=== PATIENT | male | born 1970 | race Caucasian/White ===

== ENCOUNTER 2021-03-05 09:51 | Emergency (ER) | payer OTHER, BC ==
--- NOTE | 2021-03-05 10:24 | EDM.PDOC ---
ED HPI GENERAL MEDICAL PROBLEM - General Chief Complaint: Upper Extremity Injury/Pain Stated Complaint: LEFT ELBOW PAIN Time Seen by Provider: 03/05/21 10:11 Source of Information: Reports: Patient History Limitations: Reports: No Limitations - History of Present Illness INITIAL COMMENTS - FREE TEXT/NARRATIVE: HISTORY AND PHYSICAL: History of present illness: Patient is a 50-year-old male who presents to the emergency room with complaints of left elbow pain post fall. Patient states he tripped and fell landing on his left elbow. Denies hitting his head or having any loss of consciousness. He does have significant bruising noted at the elbow region. Denies any numbness, tingling, saddle paresthesia. Denies any other bodily injury. Offers no systemic complaints. Review of systems: As per history of present illness and below otherwise all systems reviewed and negative. Past medical history: As per history of present illness and as reviewed below otherwise non contributory. Surgical history: As per history of present illness and as reviewed below otherwise noncontributory. Social history: See social history for further information Family history: As per history of present illness and as reviewed below otherwise noncontributory. Physical exam: General: Well developed and well nourished 50 year old female. Alert and orientated x 3. Nontoxic in appearance and in no acute distress. Vital signs are stable and have been reviewed by me. Nursing notes were reviewed. HEENT: Atraumatic, normocephalic, pupils equal and reactive bilaterally, negative for conjunctival pallor or scleral icterus, mucous membranes moist, trachea midline. No drooling or trismus noted. No meningeal signs. No hot potato voice noted. Lungs: Clear to auscultation bilaterally. No wheezes, rales, or rhonchi. Chest nontender. Normal work of breathing, no accessory muscles used. Heart: S1S2, regular rate and rhythm without overt murmur, gallops, or rubs. No JVD. No peripheral edema Abdomen: Soft, nondistended, nontender. Skin: Bruising to the left elbow with soft tissue swelling. Remaining skin is intact, warm, dry. No lesions or rashes noted. Hematologic: No petechiae or purpra. Mucosa appropriate color and normal nail bed color and refill. Extremities: Pain with palpation of the left olecranon and soft tissue surrounding the elbow. He does have good range of motion although it does cause increased pain. Otherwise he moves all other extremities per self without difficulty or deficits, negative for cords or calf pain. Neurovascular unremarkable. Neuro: Awake, alert, oriented. Cranial nerves II through XII unremarkable. Cerebellum unremarkable. Motor and sensory unremarkable throughout. Exam nonfocal. Psychiatric: Mood and affect are appropriate. Normal thought process. Answering questions appropriately. Please note that the patient was seen and evaluated during the 2019 SARS-CoV-2 novel coronavirus pandemic period. Community viral transmission is ongoing at time of this encounter and the emergency department is operating under pandemic response procedures. Medical Decision Making: Patient is a 50-year-old male who presents to the emergency room with complaints of left elbow pain post fall. Will obtain an x-ray. X-ray shows mild soft tissue swelling overlying the olecranon. No other acute findings. No fracture or dislocation. Sling for left elbow contusion. Patient to wear for comfort over the next 1 to 3 days or until he follows up with orthopedics. I have talked with the patient about today's findings, in addition to providing specific details for plan of care. Reassessment at the time of disposition demonstrates that the patient is in no acute distress. The patient is stable for discharge, counseling was provided and we discussed in great detail signs and symptoms that would prompt them to return to the Emergency Department. Medication, follow up and supportive care measures were reviewed and discussed. Voices understanding and is agreeable to plan of care. Denies any further questions or concerns at this time. Diagnostics: Elbow x-ray Therapeutics: Sling Prescription: Bill Impression: Elbow contusion Plan: 1. You were evaluated today on an emergent basis. X-ray shows mild soft tissue swelling overlying the olecranon. No other acute findings. No fracture or dislocation. Rest, ice, elevate the extremity as able. Sling for comfort purposes. 2. You can alternate Tylenol and ibuprofen as needed for pain and fever management. 3. We encourage you to follow up with your primary care provider and/or recommended specialist in the next few days for re-evaluation and further care/management. 4. If your symptoms should worsen, new symptoms develop or any of the signs and symptoms we discussed should arise please return to the emergency room or call 911 (if needed). Definitive disposition and diagnosis as appropriate pending reevaluation and review of above. left elbow Pain Score (Numeric/FACES): 5 - Related Data Allergies Allergy/AdvReac Type Severity Reaction Status Date / Time No Known Allergies Allergy Verified 03/05/21 12:04 Home Meds: Home Meds traMADol [Ultram] 50 mg PO Q4H PRN #15 tab 03/05/21 [Rx] Past Medical History - Past Health History Medical/Surgical History: Denies Medical/Surgical History Review of Systems - Review of Systems Review Of Systems: Comprehensive ROS is negative, except as noted in HPI. ED EXAM, GENERAL - Physical Exam Exam: See Below (See dictation) Course - Vital Signs Last Recorded V/S: Last Vital Signs Temp 96.7 F L 03/05/21 12:05 Pulse 57 L 03/05/21 12:05 Resp 18 03/05/21 12:05 BP 136/79 03/05/21 12:05 Pulse Ox 98 03/05/21 12:05 - Orders/Labs/Meds Orders: Active Orders 24 hr Category Date Time Status DME for Discharge [COMM] Stat Oth 03/05/21 12:28 Ordered Departure - Departure Time of Disposition: 12:32 Disposition: Home, Self-Care 01 Clinical Impression: Contusion of elbow, left Qualifiers: Encounter type: initial encounter Qualified Code(s): S50.02XA - Contusion of left elbow, initial encounter - Discharge Information Prescriptions: traMADol [Ultram] 50 mg PO Q4H PRN #15 tab PRN Reason: Pain Instructions: Elbow Contusion, [id number] Referrals: PCP,None [Primary Care Provider] - Forms: ED Department Discharge Additional Instructions: The following information is given to patients seen in the emergency department who are being discharged to home. This information is to outline your options for follow-up care. We provide all patients seen in our emergency department with a follow-up referral. The need for follow-up, as well as the timing and circumstances, are variable depending upon the specifics of your emergency department visit. If you don't have a primary care physician on staff, we will provide you with a referral. We always advise you to contact your personal physician following an emergency department visit to inform them of the circumstance of the visit and for follow-up with them and/or the need for any referrals to a consulting specialist. The emergency department will also refer you to a specialist when appropriate. This referral assures that you have the opportunity for follow-up care with a specialist. All of these measure are taken in an effort to provide you with optimal care, which includes your follow-up. Under all circumstances we always encourage you to contact your private physician who remains a resource for coordinating your care. When calling for follow-up care, please make the office aware that this follow-up is from your recent emergency room visit. If for any reason you are refused follow-up, please contact the [facility] Emergency Department at and asked to speak to the emergency department charge nurse. [facility] [address], [place] [address] [facility] [address] [place] [id number] Thank you for choosing the [facility] emergency department in [place] for your medical needs today. It was a pleasure caring for you. Today you were seen in the emergency department for Elbow injury 1. You were evaluated today on an emergent basis. X-ray shows mild soft tissue swelling overlying the olecranon. No other acute findings. No fracture or dislocation. Rest, ice, elevate the extremity as able. Sling for comfort purposes. 2. You can alternate Tylenol and ibuprofen as needed for pain and fever management. 3. We encourage you to follow up with your primary care provider and/or recommended specialist in the next few days for re-evaluation and further care/management. 4. If your symptoms should worsen, new symptoms develop or any of the signs and symptoms we discussed should arise please return to the emergency room or call 911 (if needed). Sepsis Event Note (ED) - Focused Exam Vital Signs: Vital Signs Temp Pulse Resp BP Pulse Ox 03/05/21 12:05 96.7 F L 57 L 18 136/79 98 - My Orders Last 24 Hours: My Active Orders 03/05/21 12:28 DME for Discharge [COMM] Stat - Assessment/Plan Last 24 Hours: My Active Orders 03/05/21 12:28 DME for Discharge [COMM] Stat
--- NOTE | 2021-03-05 12:30 | CR ---
Indication: Fall. Significant bruising to posterior elbow. Technique: Left elbow 3 views. Comparison: None. Findings: No acute fracture or dislocation. No elbow joint effusion. Mild soft tissue swelling overlying the olecranon. Impression: Mild soft tissue swelling overlying the olecranon. No other acute findings. Dictated by Elma Johns MD @ 03/05/2021 12:28:59 PM (Electronically Signed)
[2021-03-05 17:57] VITALS: BP 131/86; PULSE 62
== END 2021-03-05 13:00 | disposition home or self-care (01) ==
LOC: MW.ED 09:51
DX: S50.02XA Contusion of left elbow, initial encounter (principal); W18.39XA Other fall on same level, initial encounter
CPT/HCPCS: 73080-26-LT; 73080-LT; 99283-25